=== PATIENT | female | born 1980 | race Caucasian/White ===

== ENCOUNTER 2019-09-18 11:35 | Inpatient (IN) | payer OTHER, SELFPAY ==
[2019-09-18 10:29] VITALS: BMI 34.7
[2019-09-18 11:10] LABS: ROM Internal Control Test YES-OK TO RESULT pt. (Internal QC)
[2019-09-18 11:12] LABS: ROM Patient Test POSITIVE (Negative)
[2019-09-18] MEDS: Lactated Ringers 1,000 ML 50 ML IV (12:00)
[2019-09-18 12:21] LABS: Absolute Lymphocyte Count 1.55 X10^3/uL (0.83-4.51); Absolute Neutrophil Count 10.2 X10^3/uL (2.0-7.7); Basophil# 0.03 X10^3/uL; Basophil% 0.2 % (0-1); Eosinophil# 0.04 X10^3/uL; Eosinophils% 0.3 % (0-5); Hematocrit 34.8 % (37-47); Hemoglobin 11.6 g/dL (12.0-15.0); Lymphocyte # 1.55 X10^3/ul (4.0); Lymphocyte % 12.3 % (19-41); Mean Corp Hgb Conc 33.3 g/dL (32-36); Mean Corpuscular Hgb 31.5 pg (27.0-32.0); Mean Corpuscular Volume 94.6 fL (81-99); Mean Platelet Vol. 10.7 fl (6.2-12.0); Monocyte# 0.65 X10^3/uL; Monocyte% 5.2 % (0-10); NRBC Flagged by Analyzer 0 % (0-5); Neutrophil # 10.24 X10^3/uL (2.7-7.7); Neutrophil % 81.2 % (47-70); Platelet Count 180 K/mm3 (150-450); RBC Distribution Width CV 12.9 % (11.6-14.6); RBC Distribution Width SD 44.1 fl (35.1-43.9); Red Blood Count 3.68 M/mm3 (4.2-5.4); White Blood Count 12.6 K/mm3 (4.4-11.0)
--- NOTE | 2019-09-18 13:41 | PCM.HP.OB ---
- Problem List (1) Advanced maternal age (AMA) in Status: Acute (2) History of shoulder dystocia in prior Status: Acute (3) History of delivery of macrosomal infant Status: Acute (4) Late care Status: Acute (5) 40 weeks gestation of Status: Acute (6) Spontaneous rupture of membranes Status: Acute History Date of Admission: 09/18/19 Final TOMÁS: 09/18/19 Gestational age: 40 Weeks and 0 Days History of this : This is a 39 year-old, G 5, P 4, at 40 weeks gestational age who presents after SROM at home for clear fluid. +Ctx's and VB. +FM. Allergies No Known Allergies Allergy (Verified 09/18/19 11:29) Home Medications: Home Medications Vits [Prenatabs FA ] 1 tab PO DAILY 09/18/19 Smoking Status: Never smoker Number of Fetus(es): 1 NST - FHR Rate Baby A NST Reactive:: Yes FHR Category:: Category I Uterine Activity:: Ctx's q 5 min History Past Pregnancies: Past Pregnancies Delivery Date Name GA/ Weeks Outcome Route Wt Infant Sex Labor Length Anesthesia Delivery Location Provider FOB term term term term Labs: See [facility] record Expected Delivery Method: Spontaneous Vaginal Review of Systems Gynecological: Reports: - - +SROM, vb, ctx's, FM Physical Exam General: Alert, No apparent distress HEENT: Atraumatic Abdomen: Soft, Non Tender, Gravid Extremities:: No edema Neurological: Neuro grossly intact 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 - Admit for labor management - Pit gtt as needed for augmentation - Routine intrapartum care - Pelvis adequate and fetus palpates < 5000 g. Anticipate
[2019-09-18] MEDS: Oxytocin 30 units/NS 500 ml 30 UNITS/500 ML IV.SOLN 167 UNITS IV (14:54)
[2019-09-18] MEDS: Oxytocin 30 units/NS 500 ml 30 UNITS/500 ML IV.SOLN 334 UNITS IV (18:58)
--- NOTE | 2019-09-18 19:25 | PCM.OPRPT ---
Problem List (1) Advanced maternal age (AMA) in Status: Acute (2) History of shoulder dystocia in prior Status: Acute (3) History of delivery of macrosomal Status: Acute (4) Late care Status: Acute (5) 40 weeks gestation of Status: Acute (6) Spontaneous rupture of membranes Status: Acute Report of Operation Date of Procedure: 09/18/19 Pre-Operative Diagnosis: 40 week gestation, AMA, multiparous patient, SROM Post-Operative Diagnosis: As above Surgery/Procedure Performed:: Description of Surgical Findings:: Viable female infant in occiput posterior position. Intact and normal-appearing placenta with a three-vessel cord. Clear fluid. Type of Anesthesia:: None Special Medications: None Specimen's removed: Placenta Drains: None Estimated Blood Loss (mL): 200 Fluids Replaced: None Description of Procedure: Complete and pushing. Variable decelerations were noted with pushing. Head delivered in occiput posterior position. The delivered without any force or delay. Viable female delivered atraumatically and placed on maternal abdomen. The cord was clamped and cut after 60 sec delay. Cord gases and cord blood were obtained. Placenta was delivered with fundal massage and noted to be intact and normal-appearing with a three-vessel cord. A second-degree perineal tear was repaired in usual fashion. Grafts/Implants Used: None - Complications None - Admit VTE Documentation VTE Present on Admission: No Vaginal Delivery Maternal Presentation: Spontaneous Rupture of Membranes Amniotic Membrane Rupture Type: Spontaneous at home Amniotic Fluid Description: Clear Final TOMÁS: 09/18/19 Gestational age: 40 Weeks and 0 Days Surgery/ Procedure Performed: Spontaneous Vaginal Delivery Type of Anesthesia: None Presentation: Vertex Placental Delivery Description: Expressed Cord Vessel Description: 3 Vessels Cord Entanglement: None Infant A gender: Female Episiotomy Description: None Laceration: 2nd degree Medications given after delivery: IV Pitocin Complications: None
[2019-09-18] MEDS: 0.9% Saline Lock 10 ML Syringe IV (21:49)
[2019-09-19 00:05] VITALS: BP 90/49; PULSE 84; RESP 16; TEMP 36.9
[2019-09-19 04:00] VITALS: BP 105/62; PULSE 69; RESP 18; TEMP 37.4
--- NOTE | 2019-09-19 08:22 | DCINST_ITS ---
Discharge Diet: No Restrictions Discharge Activity: May Drive, May Shower May resume sexual activity in: 6 weeks Weight Bearing Status: Weight bearing as tolerated Additional Instructions: If you experience any of the following, contact your healthcare provider. * Bleeding that soaks a pad every hour for 2 hours * Fever 100.4 or higher * Unrelieved incision or abdominal pain * Swelling, redness, discharge or bleeding from your incision or episiotomy site * Your incision begins to separate * Problems urinating (including inability to urinate or burning while urinating). * Visual changes * Severe headache * Flu-like symptoms * Pain or redness in one of both of your breasts * Pain, warmth, tenderness or swelling in your legs, especially the calf area * Frequent nausea and vomiting * Symptoms of depression or anxiety If you experience any of the following, call 911 or go to the nearest Emergency Room. * Chest pain * Problems breathing * Seizure activity * Partial or complete paralysis of a body part, slurred speech, weakness or drooping of the face, or a sudden inability to walk or hold your balance Allergies/Adverse Reactions: Allergies No Known Allergies Allergy (Verified 09/18/19 11:29) Medications to take at Discharge Vits [Prenatabs FA ] 1 tab PO DAILY 09/18/19 Primary Care Physician: Gregorio Whaley MD [Primary Care Provider] - Test Results: Test results from this visit will be discussed in further detail at your follow- up appointment, if applicable.
--- NOTE | 2019-09-19 08:22 | PCM.DCVAG ---
Discharge Diet: No Restrictions Discharge Activity: May Drive, May Shower May resume sexual activity in: 6 weeks Weight Bearing Status: Weight bearing as tolerated Additional Instructions: If you experience any of the following, contact your healthcare provider. Bleeding that soaks a pad every hour for 2 hours Fever 100.4 or higher Unrelieved incision or abdominal pain Swelling, redness, discharge or bleeding from your incision or episiotomy site Your incision begins to separate Problems urinating (including inability to urinate or burning while urinating). Visual changes Severe headache Flu-like symptoms Pain or redness in one of both of your breasts Pain, warmth, tenderness or swelling in your legs, especially the calf area Frequent nausea and vomiting Symptoms of depression or anxiety If you experience any of the following, call 911 or go to the nearest Emergency Room. Chest pain Problems breathing Seizure activity Partial or complete paralysis of a body part, slurred speech, weakness or drooping of the face, or a sudden inability to walk or hold your balance Allergies/Adverse Reactions: Allergies No Known Allergies Allergy (Verified 09/18/19 11:29) Medications to take at Discharge Vits [Prenatabs FA ] 1 tab PO DAILY 09/18/19 Primary Care Physician: Gregorio Whaley MD [Primary Care Provider] - Test Results: Test results from this visit will be discussed in further detail at your follow-up appointment, if applicable.
--- NOTE | 2019-09-19 08:22 | PCM.PN.OB ---
Patient Problems: Active and Suspected Problems Advanced maternal age (AMA) in (Acute) History of shoulder dystocia in prior (Acute) History of delivery of macrosomal (Acute) Late care (Acute) 40 weeks gestation of (Acute) Spontaneous rupture of membranes (Acute) Subjective: No complaints - Physical Exam Vitals/I&O's: Vital Signs Temp Pulse Resp BP 99.3 F H 69 18 105/62 09/19/19 04:00 09/19/19 04:00 09/19/19 04:00 09/19/19 04:00 Oxygen Delivery Method Room Air Weight: 202 lb 6 oz Body Mass Index (BMI) 34.7 Intake and Output for Last 24 Hours 09/17/19 09/18/19 09/19/19 23:59 23:59 23:59 Intake Total 1542.46 / 1542.46 Output Total 100 / 100 1725 / 1725 Balance 1442.46 / 1442.46 -1725 / -1725 General: Alert, Oriented x3 Abdomen: Soft, Non Tender, Non-Distended - ff mid & below umb Extremities: No Calf Tenderness Laboratory Results 09/18/19 10:25: Vag Amniotic Fld Detect POSITIVE H 09/18/19 12:05: WBC 12.6 H, RBC 3.68 L, Hgb 11.6 L, Hct 34.8 L, MCV 94.6, MCH 31.5, MCHC 33.3, RDW Std Deviation 44.1 H, RDW Coeff of Inge 12.9, Plt Count 180, MPV 10.7, Immature Gran % (Auto) 0.800, Neut % (Auto) 81.2 H, Lymph % (Auto) 12.3 L, [place] % (Auto) 5.2, Eos % (Auto) 0.3, Baso % (Auto) 0.2, Absolute Neuts (auto) 10.2 H, Absolute Lymphs (auto) 1.55, Nucleated RBC % 0 09/18/19 12:05: Blood Type O POSITIVE, Antibody Screen NEGATIVE Current Medications Acetaminophen (Tylenol) 1,000 mg PO Q8H PRN PRN PRN Reason: Pain Score 1-3/10 Bisacodyl (Dulcolax) 10 mg RECTAL UD PRN PRN Reason: If no BM Dibucaine (Dibucaine) 1 applic TOPICAL TID PRN PRN; Protocol PRN Reason: Discomfort Hydrocortisone (Hytone) 1 applic TOPICAL TID PRN PRN; Protocol PRN Reason: Discomfort Ibuprofen (Motrin) 600 mg PO Q6H PRN PRN PRN Reason: Pain Score 1-3/10 Methylergonovine Maleate (Methergine) 0.2 mg IM X1 PRN PRN Reason: Excess bleeding/uterine atony Ondansetron HCl (Zofran) 4 mg IV Q4H PRN PRN PRN Reason: Nausea Senna/Docusate Sodium (Senokot-S, Hattie-Colace) 1 - 2 tablet PO DAILY PRN PRN PRN Reason: Constipation Simethicone (Mylicon) 80 mg PO PCHS PRN PRN Reason: Indigestion/Stomach pain Sodium Chloride () 5 - 15 ml IV UD PRN PRN Reason: SALINE FLUSH Last Admin: 09/18/19 21:49 Dose: 10 ml Documented by: Medical Necessity - Tobacco Use Smoking Status: Never smoker Assessment/Plan All Active Problems Advanced maternal age (AMA) in (Acute) History of shoulder dystocia in prior (Acute) History of delivery of macrosomal infant (Acute) Late care (Acute) 40 weeks gestation of (Acute) Spontaneous rupture of membranes (Acute) PPD#1 D/c home later today per patient request
[2019-09-19 08:40] VITALS: BP 106/67; PULSE 79; RESP 16; TEMP 37.1
[2019-09-19 11:55] VITALS: BP 117/55; PULSE 88; RESP 16; TEMP 36.9
[2019-09-19 16:07] VITALS: BP 99/62; PULSE 81; RESP 16; TEMP 37.1
[2019-09-19 20:16] VITALS: BP 103/61; PULSE 73; RESP 16; TEMP 36.6
== END 2019-09-19 21:55 | disposition home or self-care (01) | DRG 807 ==
LOC: WPOUT 11:47 → WP 11:47
PROVIDERS: Admitting Provider Obstetrics & Gynecology; Referring Provider Obstetrics & Gynecology; Visit Provider Obstetrics & Gynecology
DX: O76 Abnormality in fetal heart rate and rhythm complicating labor and delivery (principal); Z37.0 Single live birth; Z3A.40 40 weeks gestation of pregnancy; O70.1 Second degree perineal laceration during delivery
CPT/HCPCS: 59025; 59050; 84112; 85025; 86850; 86900; 86901; 99218; J7120; A4216; G0378